=== PATIENT | male | born 1990 | race Caucasian/White ===

== ENCOUNTER 2020-05-20 08:17 | Emergency (ER) | payer SELFPAY ==
--- NOTE | 2020-05-20 08:28 | EDM.PDOC ---
ED HPI GENERAL MEDICAL PROBLEM - General Chief Complaint: Chest Pain Stated Complaint: CHEST PAIN Time Seen by Provider: 05/20/20 08:26 Source of Information: Reports: Patient History Limitations: Reports: No Limitations - History of Present Illness INITIAL COMMENTS - FREE TEXT/NARRATIVE: 29-year-old male with no past medical history presents with chest pain. Chest pain is localized to the right parasternal region, nonradiating, reproducible with palpation and movement, waxes and wanes, mild. Today the pain grew constant. He denies fever, chills, cough, shortness of breath, nausea, vomiting, hemoptysis, recent surgery, history of DVT or PE, control use. ROS: A 10-point review of systems, other than pertinent positives and negatives as stated per HPI, is otherwise negative Past medical history: No additional pertinent history Past Surgical history: No additional pertinent history Social history: No additional pertinent history Family history: No additional pertinent history PHYSICAL EXAM General: AOx4, GCS = 15, No distress HEENT: dry mucous membrane Neck: supple, no meningismus, no Kernig or Brudzinski Cardiac: S1S2 RRR Fall: Focal 100% reproducible tenderness to the right parasternal. Respiratory: CTAB, no crackles or rales, no wheezing Abdomen: Soft, nontender, no rebound or guarding, nondistended, no pulsatile mass. Back: nontender Musculoskeletal: NVI distally, no deformity Neuro: No focal deficits, CN 2 - 12 WNL. chest Pain Score (Numeric/FACES): 4 - Related Data Allergies Allergy/AdvReac Type Severity Reaction Status Date / Time No Known Allergies Allergy Verified 05/20/20 08:30 Home Meds: Home Meds Naproxen [Naprosyn] 500 mg PO Q12HR #30 tab 05/20/20 [Rx] ED ROS GENERAL - Review of Systems Review Of Systems: See Below (see dictation) ED EXAM, GENERAL - Physical Exam Exam: See Below (see dictation) #1 Interpretation EKG Interpretation Comments: 89 bpm, NSR, normal QRS interval, no STEMI. EKG and rhythm strip interpreted by me at 0825 Course - Vital Signs Last Recorded V/S: Last Vital Signs Temp 96.9 F 05/20/20 08:18 Pulse 93 05/20/20 08:18 Resp 17 05/20/20 08:18 BP 141/93 H 05/20/20 08:18 Pulse Ox 99 05/20/20 08:18 - Orders/Labs/Meds Orders: Active Orders 24 hr Category Date Time Status Cardiac Monitoring [RC] . DIRECTED Care 05/20/20 08:27 Active EKG Documentation Completion [RC] STAT Care 05/20/20 08:27 Active Pulse Oximetry [RC] ASDIRECTED Care 05/20/20 08:27 Active - Re-Assessments/Exams Free Text/Narrative Re-Assessment/Exam: 05/20/20 09:32 He is currently stable for discharge. I performed a repeat exam and did not appreciate new abnormal findings. Patient exhibits normal vital signs and has a normal gait on road test. I advised the patient to return to the ER for reevaluation if symptoms worsened, including fever, worsening pain, or any other worrisome symptoms. I instructed the patient to follow up with their PCP within 2-3 days. MEDICAL DECISION MAKING: I reviewed the patients past medical records, lab and radiographic findings. I discussed the case with the patient. My differential diagnosis includes but is not limited to: chest wall pain, ACS, pneumonia, PE, pneumothorax, pulmonary edema/CHF, aortic dissection, pericarditis, intra- abdominal process. His clinical history is suggestive of chest wall pain, his chest pain is reproducible to the right side parasternal, consistent with chest wall pain. Given the EKG and clinical history, I do not suspect pericarditis. There is no evidence of pneumothorax or infiltrate on CXR. Aortic dissection was considered, however the presenting symptoms were uncharacteristic of aortic dissection. Chest X-ray shows no evidence of mediastinal widening and there are strong, equal and symmetric pulses. Given the current presentation, I do not suspect aortic dissection. The patients history, chest X-ray, and exam do not suggest pulmonary edema/congestive heart failure. Pulmonary embolism was considered but felt unlikely due to the compendium of presenting elements leading to a low pre-test probability followed by a negative PERC rule. All 8 of the rule out PERC criteria were present including: Age<50, HR <100, O2 sat > 94%, no recent trauma/surgery, no hemoptysis, no exogenous hormone use, no clinical signs suggestive of DVT, no hx DVT/PE. Given the above, there is a <2% risk of PE and I feel that no further diagnostic testing is needed. Intra- abdominal pathology felt unlikely given benign/non tender abdominal exam. Acute coronary syndrome was considered but felt unlikely given inconsistent history, no acute ischemic EKG changes, and the patient has a low HEART score. Based on this, I feel that there is low risk for short-term major adverse cardiac event. 05/20/20 09:35 Departure - Departure Time of Disposition: 09:24 Disposition: Home, Self-Care 01 Condition: Good Clinical Impression: Costochondritis Prescriptions: Naproxen [Naprosyn] 500 mg PO Q12HR #30 tab Instructions: Costochondritis, [id number] Referrals: PCP,Not In Area [Primary Care Provider] - Forms: ED Department Discharge Additional Instructions: The need for follow-up, as well as the timing and circumstances, are variable depending upon the specifics of your emergency department visit. If you don't have a primary care physician on staff, we will provide you with a referral. We always advise you to contact your personal physician following an emergency department visit to inform them of the circumstance of the visit and for follow-up with them and/or the need for any referrals to a consulting specialist. The emergency department will also refer you to a specialist when appropriate. This referral assures that you have the opportunity for follow-up care with a specialist. All of these measure are taken in an effort to provide you with optimal care, which includes your follow-up. Under all circumstances we always encourage you to contact your private physician who remains a resource for coordinating your care. When calling for follow-up care, please make the office aware that this follow-up is from your recent emergency room visit. If for any reason you are refused follow-up, please contact the [facility] Emergency Department at and asked to speak to the emergency department charge nurse. If you do not have a primary care doctor, please follow up with the clinics below within 3-5 days. [facility] [address], [place] [address] [facility] [address] [place] [id number] Sepsis Event Note (ED) - Focused Exam Vital Signs: Vital Signs Temp Pulse Resp BP Pulse Ox 05/20/20 08:18 96.9 F 93 17 141/93 H 99 - My Orders Last 24 Hours: My Active Orders 05/20/20 08:27 Cardiac Monitoring [RC] . DIRECTED EKG Documentation Completion [RC] STAT Pulse Oximetry [RC] ASDIRECTED - Assessment/Plan Last 24 Hours: My Active Orders 05/20/20 08:27 Cardiac Monitoring [RC] . DIRECTED EKG Documentation Completion [RC] STAT Pulse Oximetry [RC] ASDIRECTED
--- NOTE | 2020-05-20 09:28 | CR ---
INDICATION: Chest pain for 3 days. TECHNIQUE: PA and lateral chest x-ray. FINDINGS: Heart size normal. Lungs clear without infiltrate or consolidation. Mild elevation right hemidiaphragm is chronic. Chest otherwise negative without acute disease. Dictated by Kyle Vergara MD @ May 20 2020 9:25AM Signed by Dr. Kyle Vergara @ May 20 2020 9:26AM
== END 2020-05-20 10:00 | disposition home or self-care (01) ==
LOC: MW.ED 08:17
DX: M94.0 Chondrocostal junction syndrome [Tietze] (principal)
CPT/HCPCS: 71046; 71046-26; 93005; 93010; 99283; 99285-25